=== PATIENT | female | born 1935 | race Caucasian/White ===

== ENCOUNTER 2024-04-22 14:56 | Emergency (ER) | payer MEDICARE, OTHER ==
[~2024-04-22] VITALS: Ht 162.6 cm; Wt 61.2 kg
[2024-04-22] MEDS ORDERED: MUPI22OI2 TOP (16:18)
[2024-04-22] MEDS ORDERED: ROSU40TA23 (16:18)
[2024-04-22] MEDS ORDERED: DOXY-326 PO (16:18)
[2024-04-22] MEDS ORDERED: CEPH500C2 PO (16:18)
[2024-04-22] MEDS ORDERED: CLOP75TA33 PO (16:18)
[2024-04-22] MEDS ORDERED: LOSA100T31 PO (16:18)
[2024-04-22 17:09] VITALS: O2SAT 98
== END 2024-04-22 18:03 | disposition home or self-care (01) ==
LOC: ER 14:56
DX: T81.41XA Infection following a procedure, superficial incisional surgical site, initial encounter (principal); L03.116 Cellulitis of left lower limb; E78.5 Hyperlipidemia, unspecified; Z79.02 Long term (current) use of antithrombotics/antiplatelets; Z79.899 Other long term (current) drug therapy; Z86.718 Personal history of other venous thrombosis and embolism; Y92.89 Other specified places as the place of occurrence of the external cause
CPT/HCPCS: A4606; A4663